=== PATIENT | female | born 1960 | race Caucasian/White ===

== ENCOUNTER → 2017-06-21 | Outpatient (CLI) | payer OTHER ==
[~2017-06-21] MED LIST: CRAN1TAB5 PO; CYCL10TA9 PO; DLT90CCR PO; ESOM20CA32 PO; FOLI0.4T2 PO; GABA-488 PO; HYDR-3875 PO; L.AC1CAP6 PO; LISI10TA2 PO; METF500T4 PO; METO-274 PO; MULT-35 PO; NEURO-PS PO; NITR-68 PO; TAMS0.4C98 PO; VITA1CAP PO
--- NOTE | 2017-06-21 18:39 | Diagnostic Imaging Report ---
EXAMINATION: Magnetic resonance imaging of the left ankle without contrast. DATE: June 21, 2017. COMPARISON: None. HISTORY: 56-year-old female, left lateral ankle pain for 1.5 months. The patient is a runner. TECHNIQUE: Magnetic Resonance Imaging sequences were performed of the ankle without contrast. FINDINGS: TENDONS AND LIGAMENTS: There is abnormal thickening and increased signal of the Achilles tendon compatible with tendinopathy. There is no partial or complete tear of the Achilles tendon. There is fluid within the tibialis posterior tendon sheath compatible with tenosynovitis. There is a small amount of fluid within the tendon sheath of the flexor hallucis longus which have a normal tibiotalar joint communication. There is mild tenosynovitis of flexor digitorum longus. There is no identified tear of the posterior flexor tendons. The peroneal tendons - peroneus longus and peroneus brevis - are intact. The anterior extensor tendons - tibialis anterior, extensor hallucis longus and extensor digitorum longus tendons - are intact. The anterior and posterior syndesmotic ligaments are intact. The anterior talofibular, posterior talofibular, calcaneofibular and deltoid ligaments are intact. There is thickening and increased signal of the medial cord of the plantar fascia without findings to specifically suggest an active plantar fasciitis. There is no identified tear the plantar fascia. JOINTS: The ankle mortise is intact. The subtalar and visualized joints of the mid-foot are intact. BONE: The bones all have normal configuration. The bone marrow signal is within normal limits. Specifically, negative for fracture, osteomyelitis, osteonecrosis, or marrow replacing process. The talar dome is intact. BURSAE AND SOFT TISSUES: There is a loculated ganglion cyst between the bases of the third and fourth metatarsals at the dorsal margin which measures 8 x 4 x 5 mm in size best illustrated on coronal T2 fat saturation sequence image 28. There is a multiloculated ganglion cyst superficial to the tibialis posterior tendon below the level of the tip of the medial malleolus which is perhaps best illustrated on coronal T2 fat saturation sequence image 17 and measures 22 x 5 x 7 mm in size. This is located superficial to the retinaculum superficial to the tibialis posterior tendon. IMPRESSION: 1. Achilles tendinopathy. No partial or complete tear of the Achilles tendon. 2. Tenosynovitis of tibialis posterior and flexor digitorum longus. No identified tear of the posterior flexor tendons. 3. Multiloculated ganglion cyst superficial to the retinaculum superficial to the tibialis posterior tendon below the level of the tip of the medial malleolus which measures 22 x 5 x 7 mm in size. 4. Thickening of the medial cord of the plantar fascia without findings to specifically suggest active plantar fasciitis. No tear of the plantar fascia. 5. Intact ankle ligaments. 6. No acute fracture, bone contusion, or evidence of osteonecrosis. 6. Ganglion cyst between the bases of the third and fourth metatarsals at their dorsal margin which measures 8 x 4 x 5 mm in size. Dictated by: Dictated on workstation # [id number]
== END ==
LOC: RAD 17:24
PROVIDERS: ATTEND Podiatrist Foot & Ankle Surgery
DX: M76.62 Achilles tendinitis, left leg (principal); M65.872 Other synovitis and tenosynovitis, left ankle and foot; M67.472 Ganglion, left ankle and foot
CPT/HCPCS: 73721

== ENCOUNTER → 2019-11-20 | Outpatient (CLI) | payer OTHER ==
[~2019-11-20] MED LIST changes: +METF-397 PO; -METF500T4 PO; -METO-274 PO; +MTP100TCR PO; -TAMS0.4C98 PO; +TMSL.4C PO
--- NOTE | 2019-11-20 16:02 | Diagnostic Imaging Report ---
INDICATION: Fall resulting in right-sided pain. FINDINGS: No lung contusion, pneumothorax, or hemothorax. No free air beneath the right diaphragm. There are clips at the level of the gallbladder fossa. No bony destructive process. No identifiable rib fracture deformity. No evidence for pleural hematoma. IMPRESSION: No acute appearing abnormality. Dictated by: Dictated on workstation # [id number]
== END ==
LOC: RAD FS 15:20
PROVIDERS: ATTEND Nurse Practitioner
DX: R07.81 Pleurodynia (principal); W19.XXXA Unspecified fall, initial encounter
CPT/HCPCS: 71100

== ENCOUNTER → 2022-03-10 | Outpatient (CLI) | payer OTHER ==
[~2022-03-10] MED LIST changes: +CYCL10TA25 PO; -CYCL10TA9 PO; -FOLI0.4T2 PO; +FOLI0.4T6 PO; -LISI10TA2 PO; +LISI10TA25 PO
--- NOTE | 2022-03-10 10:48 | Diagnostic Imaging Report ---
INDICATION: Injury to the left knee. Time of Exam: 9:25 AM 3 views left knee were obtained. There is medial compartmental degenerative change with marginal spurring. Articular surfaces are smooth. No fracture, dislocation or effusion is seen. IMPRESSION: Mild degenerative changes. No acute bony abnormality is detected. Dictated by: Dictated on workstation # [id number]
== END ==
LOC: RAD FS 09:08
PROVIDERS: ATTEND Nurse Practitioner
DX: M17.12 Unilateral primary osteoarthritis, left knee (principal)
CPT/HCPCS: 73562

== ENCOUNTER 2023-08-13 20:44 | Emergency (ER) | payer SELFPAY ==
[~2023-08-13] VITALS: Ht 157.5 cm; Wt 90.7 kg
--- NOTE | 2023-08-13 20:49 | ED Neurological Problem ---
General Stated Complaint: ALTERED STATUS History of Present Illness Date Seen by Provider: Aug 13, 2023 Time Seen by Provider: 20:49 Initial Comments 62-year-old female presents with questionable may be seizure or vagal type activity. Patient's daughter reports that she has not felt that all day and upset stomach, vomited. That her daughter can appear to be having periodically going to check on her. That she her, got finalized and when she went to check on her she was kind shaking, drooling with a clenched hands and her eyes rolled up. EMS was called and reports that when they arrived she would continue to stare through and not speak or follow commands. Upon arrival to the ER patient would follow commands, move herself off the cot started answering questions but was mildly confused that was rapidly improving. Allergies and Home Medications Allergies Coded Allergies: codeine (Verified Allergy, Intermediate, HEADACHES, NAUSES, 05/05/16) povidone-iodine (Verified Allergy, Intermediate, SEVERE HIVES, 05/05/16) soap (Verified Allergy, Intermediate, SEVERE HIVES, 05/05/16) Patient Home Medication List Home Medication List Reviewed: Yes Cephalexin (Cephalexin) 500 Mg Tablet, 500 MG PO QID Prescribed by: LUCIA LANDEROS on 08/14/23 0114 Cranberry Conc/C/Bacill Coag (Cranberry Tablet) 1 Each Tablet, 1 EACH PO DAILY, (Reported) Entered as Reported by: SEBASTIAN CORREA on 05/05/16 1606 Cyclobenzaprine HCl (Cyclobenzaprine HCl) 10 Mg Tablet, 10 MG PO HS, (Reported) Entered as Reported by: SEBASTIAN CORREA on 05/05/16 1606 Diltiazem HCl (Diltiazem 12Hr ER) 90 Mg Tab, 90 MG PO BID, (Reported) Entered as Reported by: SEBASTIAN CORREA on 05/05/16 1606 Esomeprazole Magnesium (Nexium 24Hr) 22.3 Mg Capsule.dr, 22.3 MG PO -W-, (Reported) Entered as Reported by: SEBASTIAN CORREA on 05/05/16 1606 Folic Acid (Folic Acid) 0.4 Mg Tablet, 0.4 MG PO DAILY, (Reported) Entered as Reported by: SEBASTIAN CORREA on 05/05/161605 Gabapentin (Gabapentin) 300 Mg Capsule, 300 MG PO BID, (Reported) Entered as Reported by: SEBASTIAN CORREA on 05/05/161605 Hydrocodone/Acetaminophen (Lorcet Plus 7.5-325 mg Tablet) 1 Each Tablet, 1-2 EACH PO Q4H Prescribed by: ESTHER ROSARIO on 05/12/16915 L.acidoph & Paracasei,B.lactis (Probiotic) 1 Each Capsule, 1 EACH PO BID, (Reported) Entered as Reported by: SEBASTIAN CORREA on 05/05/161605 Lisinopril (Lisinopril) 10 Mg Tablet, 10 MG PO DAILY, (Reported) Entered as Reported by: SEBASTIAN CORREA on 05/05/161605 Metformin HCl (Metformin HCl) 500 Mg Tablet, 500 MG PO BID, (Reported) Entered as Reported by: SEBASTIAN CORREA on 05/05/161605 Metoprolol Succinate (Metoprolol Succinate) 100 Mg Tab.er.24h, 100 MG PO DAILY, (Reported) Entered as Reported by: SEBASTIAN CORREA on 05/05/161605 Metoprolol Succinate (Metoprolol Succinate) 100 Mg Tab.er.24h, 150 MG PO HS, (Reported) Entered as Reported by: SEBASTIAN CORREA on 05/05/161605 Multivitamin (Daily Multiple Vitamin) 1 Each Tablet, 1 EACH PO DAILY, (Reported) Entered as Reported by: SEBASTIAN CORREA on 05/05/161605 Nitrofurantoin Macrocrystal (Macrodantin) 100 Mg Capsule, 100 MG PO BID WITH MEALS Prescribed by: ESTHER ROSARIO on 05/12/16915 Tamsulosin HCl (Flomax) 0.4 Mg Cap, 0.4 MG PO DAILY Prescribed by: ESTHER ROSARIO on 05/12/16915 Vitamin B Complex (Vitamin B Complex) 1 Each Capsule, 1 EACH PO BID, (Reported) Entered as Reported by: SEBASTIAN CORREA on 05/05/161605 [Neuro-Ps] , 200 MG PO HS, (Reported) Entered as Reported by: SEBASTIAN CORREA on 05/05/16 1606 Review of Systems Review of Systems Constitutional: see HPI Past Qcicdwv-Hnojzj-Rscqdv Hx Past Medical History Sexually Transmitted Disease: No HIV/AIDS: No Kidney Stones Gastroesophageal Reflux Arthritis, Fibromyalgia Loss of Vision: Bilateral Hearing Impairment: Denies Adverse Reaction/Blood Tranf: No (N/A) Physical Exam Vital Signs Vital Signs - First Documented 08/13/23 20:45 Temp 35.8 Pulse 112 Resp 20 B/P (MAP) 184/110 (134) Pulse Ox 96 O2 Delivery Room Air Capillary Refill : Height, Weight, BMI Height: 5'2.00" Weight: 195lbs. 0.0oz. 88.588456se; 32.45 BMI Method: General Appearance: no apparent distress, other (mild confused ) Respiratory: lungs clear, normal breath sounds Cardiovascular: normal peripheral pulses, regular rate, rhythm Neurologic/Psychiatric: other (mild confused/post ictal ) Crainal Nerves: normal hearing Motor/Sensory: no motor deficit Progress/Results/Core Measures Results/Orders Lab Results Laboratory Tests Test 08/13/23 20:51 08/13/23 21:16 08/13/23 21:27 Range/Units White Blood Count 11.1 H 4.3-11.0 10^3/uL Red Blood Count 4.59 3.80-5.11 10^6/uL Hemoglobin 14.8 11.5-16.0 g/dL Hematocrit 44 35-52 % Mean Corpuscular Volume 96 80-99 fL Mean Corpuscular Hemoglobin 32 25-34 pg Mean Corpuscular Hemoglobin Concent 34 32-36 g/dL Red Cell Distribution Width 11.9 10.0-14.5 % Platelet Count 199 130-400 10^3/uL Mean Platelet Volume 11.2 9.0-12.2 fL Immature Granulocyte % (Auto) 1 % Neutrophils (%) (Auto) 63 42-75 % Lymphocytes (%) (Auto) 29 12-44 % Monocytes (%) (Auto) 6 0-12 % Eosinophils (%) (Auto) 1 0-10 % Basophils (%) (Auto) 0 0-10 % Neutrophils # (Auto) 7.0 1.8-7.8 10^3/uL Lymphocytes # (Auto) 3.2 1.0-4.0 10^3/uL Monocytes # (Auto) 0.6 0.0-1.0 10^3/uL Eosinophils # (Auto) 0.1 0.0-0.3 10^3/uL Basophils # (Auto) 0.0 0.0-0.1 10^3/uL Immature Granulocyte # (Auto) 0.1 0.0-0.1 10^3/uL Sodium Level 138 135-145 MMOL/L Potassium Level 3.4 L 3.6-5.0 MMOL/L Chloride Level 97 L 98-107 MMOL/L Carbon Dioxide Level 22 21-32 MMOL/L Anion Gap 19 H 5-14 MMOL/L Blood Urea Nitrogen 17 7-18 MG/DL Creatinine 0.86 0.60-1.30 MG/DL Estimat Glomerular Filtration Rate 75 BUN/Creatinine Ratio 20 Glucose Level 205 H 70-105 MG/DL Calcium Level 10.5 H 8.5-10.1 MG/DL Corrected Calcium 10.2 H 8.5-10.1 MG/DL Total Bilirubin 0.4 0.1-1.0 MG/DL Aspartate Amino Transf (AST/SGOT) 31 5-34 U/L Alanine Aminotransferase (ALT/SGPT) 29 0-55 U/L Alkaline Phosphatase 122 40-136 U/L Troponin I < 0.30 <0.30 NG/ML Total Protein 7.8 6.4-8.2 GM/DL Albumin 4.4 3.2-4.5 GM/DL Lipase 40 8-78 U/L Serum Alcohol < 10 <10 MG/DL Influenza Type A (RT-PCR) Not Detected Not Detecte Influenza Type B (RT-PCR) Not Detected Not Detecte SARS-CoV-2 RNA (RT-PCR) Not Detected Not Detecte Urine Color YELLOW Urine Clarity CLEAR Urine pH 5.5 5-9 Urine Specific [place] >=1.030 1.016-1.022 Urine Protein 3+ H NEGATIVE Urine Glucose (UA) TRACE H NEGATIVE Urine Ketones TRACE H NEGATIVE Urine Nitrite POSITIVE H NEGATIVE Urine Bilirubin NEGATIVE NEGATIVE Urine Urobilinogen 0.2 < = 1.0 MG/DL Urine Leukocyte Esterase NEGATIVE NEGATIVE Urine RBC (Auto) 1+ H NEGATIVE Urine RBC NONE /HPF Urine WBC TNTC H /HPF Urine Crystals NONE /LPF Urine Bacteria LARGE H /HPF Urine Casts NONE /LPF Urine Mucus NEGATIVE /LPF Urine Culture Indicated YES My Orders Orders - LANDEROS,LUCIA L DO Ct Head Wo-R/O Stroke (08/13/23 20:50) Alcohol (08/13/23 20:50) Cbc And Automated Diff (08/13/23 20:50) Comprehensive Metabolic Panel (08/13/23 20:50) Lipase (08/13/23 20:50) Ua Culture If Indicated (08/13/23 20:50) Influenza A And B By Pcr (08/13/23 20:50) Troponin I Fs (08/13/23 20:50) Covid 19 Inhouse Test (08/13/23 20:50) Ekg Tracing (08/13/23 20:50) Monitor-Rhythm Ecg Trace Only (08/13/23 20:50) Ondansetron Injection (Ondansetron Inj (08/13/23 21:00) Urine Culture (08/13/23 21:27) Ceftriaxone Injection (Ceftriaxone Injec (08/13/23 22:00) Ns Iv 1000 Ml (Ns Iv 1000 Ml) (08/13/23 21:55) Ct Abdomen/Pelvis Wo (08/13/23 21:57) Ondansetron Injection (Ondansetron Inj (08/13/23 22:30) Ketorolac Injection (Ketorolac Injection (08/13/23 22:30) Medications Given in ED Current Medications Medications Dose Ordered Sig/Miriam Route Start Time Stop Time Status Last Admin Dose Admin Ceftriaxone Sodium 2000 mg/ Sodium Chloride 50 ml @ 240 mls/hr ONCE ONCE IV 08/13/23 22:00 08/13/23 22:12 DC 08/13/23 22:19 240 MLS/HR Ketorolac Tromethamine 15 mg ONCE ONCE IVP 08/13/23 22:30 08/13/23 22:31 DC 08/13/23 22:31 15 MG Ondansetron HCl 4 mg ONCE ONCE IVP 08/13/23 21:00 08/13/23 21:01 DC 08/13/23 21:02 4 MG Ondansetron HCl 4 mg ONCE ONCE IVP 08/13/23 22:30 08/13/23 22:31 DC 08/13/23 22:31 4 MG Vital Signs/I&O 08/13/23 08/14/23 20:45 01:26 Temp 35.8 Pulse 112 67 Resp 20 20 B/P (MAP) 184/110 (134) 131/71 Pulse Ox 96 96 O2 Delivery Room Air Room Air Progress Progress Note : Progress Note Patient's diagnostic studies were ordered reviewed and interpreted by me. Patient does have a urinalysis concerning for a urinary tract infection. Patient imaging was ordered with final interpretation per radiology report. She had a negative head CT and negative abdominal CT for any acute findings. Patient had no further seizure-like activity while in the ER. She was back to her baseline. I discussed with patient and family that she will need to follow- up with her primary care provider for further evaluation since it is difficult to determine if she had an actual seizure, vagal episode or other unknown cause. Patient was given 2 g of Rocephin in the ER along with some IV fluids. Patient will be started on Keflex. She is stable and discharged home. Initial ECG Impression Date: Aug 13, 2023 Initial ECG Impression Time: 20:57 Initial ECG Rate: 107 Initial ECG Rhythm: S.Tach Initial ECG Impression: Nonspecific Changes Comment No acute ST elevation. Diagnostic Imaging Diagonstic Imaging: CT Plain Films/CT/US/NM/MRI: head Comments Date of Exam:08/13/23 CT HEAD WO-R/O STROKE PROCEDURE: CT head w/o r/o stroke. TECHNIQUE: Multiple contiguous axial images were obtained through the brain without the use of intravenous contrast. Auto Exposure Controls were utilized during the CT exam to meet ALARA standards for radiation dose reduction. INDICATION: Transient ischemic attack. COMPARISON: None. FINDINGS: Midline structures are not displaced. Lateral, 3rd and 4th ventricles are normal in size, shape and anatomic position. There is no mass, mass effect, hydrocephalus or hemorrhage. Laboy-white differentiation is normal. There is no sulcal effacement. There is no abnormal extra-axial fluid collection or hemorrhage. Basilar cisterns appear normal. Sinuses, orbits and mastoid air cells are unremarkable. Bone windows show no calvarial change, IMPRESSION: Unremarkable nonenhanced CT head. Reviewed: Reviewed by Me, Reviewed/Discussed Departure Impression Primary Impression: Acute cystitis with hematuria Disposition: HOME, SELF-CARE Condition: Stable Departure-Patient Inst. Referrals: NEHA JASMINE APRN (PCP) Primary Care Physician DAIJA MAURER MD (Family) Primary Care Physician Patient Instructions: Urinary Tract Infection, Adult (DC) Add. Discharge Instructions: Drink plenty of fluids, Tylenol or ibuprofen as needed for fevers chills and body aches. Follow-up with your primary care provider next week for a recheck of your symptoms. Scripts Cephalexin (Cephalexin) 500 Mg Tablet 500 MG PO QID, #20 TAB 0 Refills Prov: LUCIA LANDEROS DO 08/14/23 Work/School Note: Work Release Form Date Seen in the Emergency Department: Aug 14, 2023 Return to Work: Aug 15, 2023 LUCIA LANDEROS DO Aug 13, 2023 20:49
[2023-08-13] MEDS ORDERED: ONDANSETRON INJECTION 4 MG/2 ML (SDV) IVP ONE ×2 (21:00→22:30)
[2023-08-13 21:08] LABS: BASOPHILS % (AUTO) 0 % (0-10); EOSINOPHILS # (AUTO) 0.1 10^3/uL (0.0-0.3); EOSINOPHILS % (AUTO) 1 % (0-10); HEMATOCRIT 44 % (35-52); HEMOGLOBIN 14.8 g/dL (11.5-16.0); LYMPHOCYTES # (AUTO) 3.2 10^3/uL (1.0-4.0); LYMPHOCYTES % (AUTO) 29 % (12-44); MEAN CORPUSCULAR HEMOGLOBIN 32 pg (25-34); MEAN CORPUSCULAR HGB CONC 34 g/dL (32-36); MEAN CORPUSCULAR VOLUME 96 fL (80-99); MEAN PLATELET VOLUME 11.2 fL (9.0-12.2); MONOCYTES # (AUTO) 0.6 10^3/uL (0.0-1.0); MONOCYTES % (AUTO) 6 % (0-12); NEUTROPHILS % (AUTO) 63 % (42-75); PLATELET COUNT 199 10^3/uL (130-400); WHITE BLOOD COUNT 11.1 10^3/uL (4.3-11.0)
[2023-08-13 21:25] LABS: BILIRUBIN,TOTAL 0.4 MG/DL (0.1-1.0); CALCIUM 10.5 MG/DL (8.5-10.1); CARBON DIOXIDE 22 MMOL/L (21-32); CHLORIDE 97 MMOL/L (98-107); GLUCOSE 205 MG/DL (70-105); LIPASE 40 U/L (8-78); POTASSIUM 3.4 MMOL/L (3.6-5.0); SODIUM 138 MMOL/L (135-145); TOTAL PROTEIN 7.8 GM/DL (6.4-8.2)
--- NOTE | 2023-08-13 21:25 | Diagnostic Imaging Report ---
PROCEDURE: CT head w/o r/o stroke. TECHNIQUE: Multiple contiguous axial images were obtained through the brain without the use of intravenous contrast. Auto Exposure Controls were utilized during the CT exam to meet ALARA standards for radiation dose reduction. INDICATION: Transient ischemic attack. COMPARISON: None. FINDINGS: Midline structures are not displaced. Lateral, 3rd and 4th ventricles are normal in size, shape and anatomic position. There is no mass, mass effect, hydrocephalus or hemorrhage. Laboy-white differentiation is normal. There is no sulcal effacement. There is no abnormal extra-axial fluid collection or hemorrhage. Basilar cisterns appear normal. Sinuses, orbits and mastoid air cells are unremarkable. Bone windows show no calvarial change, IMPRESSION: Unremarkable nonenhanced CT head. Dictated by: Dictated on workstation # [id number]
[2023-08-13 21:31] LABS: BILIRUBIN,URINE NEGATIVE (NEGATIVE); CLARITY,URINE CLEAR; COLOR,URINE YELLOW; GLUCOSE, URINE (UA) TRACE (NEGATIVE); KETONES,URINE TRACE (NEGATIVE); LEUKOCYTE ESTERASE ,URINE NEGATIVE (NEGATIVE); NITRITE,URINE POSITIVE (NEGATIVE); PH,URINE 5.5 (5-9); PROTEIN,URINE 3+ (NEGATIVE)
[2023-08-13 21:32] LABS: ALANINE AMINOTRANSFERASE 29 U/L (0-55); ALBUMIN 4.4 GM/DL (3.2-4.5); ALKALINE PHOSPHATASE 122 U/L (40-136); BUN/CREATININE RATIO 20; CREATININE SERUM 0.86 MG/DL (0.60-1.30); GFR ESTIMATED 75
[2023-08-13 21:35] LABS: WBC,URINE TNTC /HPF
[2023-08-13 21:36] LABS: BACTERIA,URINE LARGE /HPF
[2023-08-13] MEDS ORDERED: NS IV 1000 ML 1,000 ML IV STA (21:55)
[2023-08-13] MEDS ORDERED: cefTRIAXone INJECTION 2,000 MG in NS (IVPB) 50 ML 50 ML IV ONE (22:00)
[2023-08-13] MEDS ORDERED: KETOROLAC INJ 15 MG/ML VIAL IVP ONE (22:30)
[2023-08-14] MEDS ORDERED: CEPH500T PO (01:14)
[2023-08-14 01:26] VITALS: BP 131/71
--- NOTE | 2023-08-14 08:07 | Diagnostic Imaging Report ---
PROCEDURE: CT abdomen and pelvis without contrast. TECHNIQUE: Multiple contiguous axial images were obtained through the abdomen and pelvis without the use of intravenous contrast. Auto Exposure Controls were utilized during the CT exam to meet ALARA standards for radiation dose reduction. INDICATION: Pyelonephritis, flank pain bilaterally. Compared 04/27/2016. FINDINGS: Lung bases clear. Gallbladder surgically absent. The liver, spleen, adrenals, pancreas unremarkable. There are bilateral kidney stones nonobstructing. No perinephric or periureteric edema. No hydroureteronephrosis and no radiodense ureteral calculi. There are extra-ureteral pelvic phleboliths chronic. The bladder non-thickened and nondilated. The uterus absent. There is no adnexal lesion. There are noninflamed diverticula at the sigmoid colon. There is a normal appendix. No bowel obstruction. There is nonaneurysmal aortic atherosclerotic vascular calcifications. Spleen, adrenals, pancreas unremarkable. IMPRESSION: Nonobstructing kidney stones stable. Noninflamed sigmoid diverticulosis with a normal appendix. No radiodense ureteral or bladder calculi. No obstruction, perforation, fluid collection or acute inflammatory changes. Dictated by: Dictated on workstation # [id number]
== END 2023-08-14 01:26 | disposition home or self-care (01) ==
LOC: EDUNIT# 20:44 → ER FS 20:46
DX: N30.01 Acute cystitis with hematuria (principal)
CPT/HCPCS: 36415; 70450; 74176; 80053; 81000; 83690; 84484; 85025; 87077; 87088; 87186; 87636; 93005; 93041; 99284; G0480; 80320; 96361; 96374; 96375; 96376